=== PATIENT | male | born 1975 | race Caucasian/White ===

== ENCOUNTER 2019-01-28 13:46 | Emergency (ER) | payer SELFPAY ==
[2019-01-28] MEDS ORDERED: TETANUS,DIPH,PERTUSS(ACELL) VACCINE 0.5 ML SYRINGE IM ONE ×2 (14:00→16:23)
--- NOTE | 2019-01-28 14:00 | Event Note ---
ED Screening Note Date of service: 01/28/19 Time: 13:59 ED Screening Note: 43 y o male presents with finger lac today while using a saw tet: not up to date This initial assessment/diagnostic orders/clinical plan/treatment(s) is/are subject to change based on patients health status, clinical progression and re- assessment by fellow clinical providers in the ED. Further treatment and workup at subsequent clinical providers discretion. Patient/guardian urged not to elope from the ED as their condition may be serious if not clinically assessed and managed. Initial orders include: tet acc eval lac repair
--- NOTE | 2019-01-28 16:26 | Emergency Department Report ---
ED Laceration HPI - HPI Chief Complaint: Wound/Laceration Stated Complaint: FINGER LAC Time Seen by Provider: 01/28/19 16:04 Occurred When: Today Location: Upper Extremity (3rd distal finger) Severity: moderate Tetanus Status: Not up to Date Laceration Symptoms: Yes Pain, No Foreign Body Sensation, No Numbness, No Weakness Other History: This is a 43-year-old male who presents to the emergency room with a laceration to left third distal finger. Patient states he accidentally cut his left third finger while operating a circular saw 2-3 hours prior to arrival at work. He applied a dressing and pressure and came directly to the emergency room. Reports tetanus vaccine is not up-to-date. States he is able to bend finger but it is very painful. Reports pain and 7 out of 10 on pain scale and worse with movement or palpation. ED Review of Systems ROS: Stated complaint: FINGER LAC Other details as noted in HPI Constitutional: denies: chills, fever Respiratory: denies: cough, shortness of breath, wheezing Cardiovascular: denies: chest pain, palpitations Gastrointestinal: denies: abdominal pain, nausea, diarrhea Skin: lesions (laceration to left third distal finger). denies: rash Neurological: denies: headache, weakness, paresthesias Psychiatric: denies: anxiety, depression ED Past Medical Hx - Past Medical History Previous Medical History?: No - Surgical History Past Surgical History?: No - Social History Smoking Status: Never Smoker - Medications Home Medications: Home Medications Medication Instructions Recorded Confirmed Last Taken Type Clindamycin [Clindamycin CAP] 300 mg PO Q8H #21 cap 01/28/19 Unknown Rx traMADoL [Ultram 50 MG tab] 50 mg PO Q6HR PRN #12 tablet 01/28/19 Unknown Rx Laceration Physical Exam - Exam General: Vital signs noted. No distress. Alert and acting appropriately. Wound Length (cm): 2 Laceration Location: Upper Extremity (left 3rd distal finger) Full Body Front + Back: 1 - 2 cm laceration into the dermis of third distal phalanx, no underlying or nearby attendance. Involving nail bed, swelling, tenderness, FROM. Neurovascularly exam: Intact, normal capillary refill, normal sensation system touch, normal 2-point discrimination. Laceration Exam: Yes Normal Distal CMS, No Foreign Body, No Exposed Tendon, Vessel, or Nerve, No Tendon Injury ED Course Vital Signs 01/28/19 13:58 Temperature 98.4 F Pulse Rate 77 Respiratory 18 Rate Blood Pressure 124/87 O2 Sat by Pulse 100 Oximetry - Laceration /Wound Repair Left Anterior Distal Finger Wound Location: upper extremity (third distal phalanx) Wound Length (cm): 2 Wound's Depth, Shape: into muscle, irregular, contused tissue Wound Explored: no foreign body removed Irrigated w/ Saline (ccs): 100 Betadine Prep?: Yes Anesthesia: 1% Lidocaine Volume Anesthetic (ccs): 5 Wound Debrided: minimal Wound Repaired With: sutures Suture Size/Type: 5:0 Number of Sutures: 7 Layer Closure?: No Sterile Dressing Applied?: Yes ED Medical Decision Making - Radiology Data Radiology results: report reviewed LEFT MIDDLE FINGER 3 VIEWS INDICATION / CLINICAL INFORMATION: Left middle finger laceration. Possible fracture. COMPARISON: None available. FINDINGS: BONES and JOINT(S): There is a comminuted fracture of the tip of the phalanx of the middle finger. No dislocation is seen. No significant arthritis is identified. SOFT TISSUES: A large laceration is noted along the tip of the middle finger with associated soft tissue gas and swelling. No additional significant abnormality. ADDITIONAL FINDINGS: None. IMPRESSION: Open fracture of the left middle finger as above. - Medical Decision Making This is a 43 y.o. male presents with laceration to left third distal finger. Patient examined by me. X-ray of left fingers obtained. Open fracture of the left middle finger as above. Patient is non-toxic appearing and stable. Given boostrix IM. Closure performed. Risk, benefits, and alternatives discussed with patient. Wound irrigated with normal saline 100 mL and Betadine. A Parekh Digital block performed with 2% lidocaine without epinephrine. Laceration closed with 7, 59 absorbable sutures, review suture note. Patient tolerated procedure well. A sterile dressing was applied. Local wound care discussed. Observe for signs of infection, bleeding, and follow up promptly if these s ymptoms occur. Suture removal in 7-10 days. Discharged home for outpatient treatment with clindamycin. Referral to orthopedic surgeon for follow-up. Discussed ER care plan with patient. Patient agreed with plan. F/U with PCP. Critical care attestation.: If time is entered above; I have spent that time in minutes in the direct care of this critically ill patient, excluding procedure time. ED Disposition Clinical Impression: Laceration of finger of left hand with damage to nail Qualifiers: Encounter type: initial encounter Finger: middle finger Foreign body presence: without foreign body Qualified Code(s): S61.313A - Laceration without foreign body of left middle finger with damage to nail, initial encounter Open finger fracture Qualifiers: Encounter type: initial encounter Finger: middle finger Phalanx: middle Fracture alignment: nondisplaced Laterality: left Qualified Code(s): S62.653B - Nondisplaced fracture of middle phalanx of left middle finger, initial encounter for open fracture Disposition: TO HOME OR SELFCARE Is pt being admited?: No Condition: Stable Instructions: Suture Care (ED), Finger Laceration (ED) Additional Instructions: Take antibiotics as prescribed for the full course. Keep wound dry and clean for 48 hours. Avoid putting to much tension on wound site. Prop arm up on pillows to decrease swelling. Follow up with Primary Care Provider in 2-3 days. Have sutures removed in 7 days by primary care provider or in ER. Return to ER if red, swollen, foul discharge, or fever. Prescriptions: Clindamycin [Clindamycin CAP] 300 mg PO Q8H #21 cap traMADoL [Ultram 50 MG tab] 50 mg PO Q6HR PRN #12 tablet PRN Reason: Pain Referrals: [facility] [Provider Group] - 3-5 Days RASHEL BARRETO MD [Staff Physician] - 3-[address] [facility] [Outside] - 3-5 Days Forms: Work/School Release Form(ED)
--- NOTE | 2019-01-28 17:00 | XRay Report ---
LEFT MIDDLE FINGER 3 VIEWS INDICATION / CLINICAL INFORMATION: Left middle finger laceration. Possible fracture. COMPARISON: None available. FINDINGS: BONES and JOINT(S): There is a comminuted fracture of the tip of the phalanx of the middle finger. No dislocation is seen. No significant arthritis is identified. SOFT TISSUES: A large laceration is noted along the tip of the middle finger with associated soft tis manpreet gas and swelling. No additional significant abnormality. ADDITIONAL FINDINGS: None. IMPRESSION: Open fracture of the left middle finger as above. Signer Name: Jackson Hagan MD Signed: 01/28/2019 4:55 PM Workstation Name: [id number]
[2019-01-28] MEDS ORDERED: SODIUM CHLORIDE 0.9% IRR 500 ML BOTTLE IR ONE (18:37)
[2019-01-28] MEDS ORDERED: LIDOCAINE (2%) 20 MG/1 ML VIAL 20 ML MDV INFILTRATI ONE (18:40)
[2019-01-28 20:55] VITALS: BP 120/70
== END 2019-01-28 20:35 | disposition home or self-care (01) ==
LOC: ED 13:46
DX: S62.603B Fracture of unspecified phalanx of left middle finger, initial encounter for open fracture (principal); W45.8XXA Other foreign body or object entering through skin, initial encounter; Y93.89 Activity, other specified; Y92.89 Other specified places as the place of occurrence of the external cause; Y99.8 Other external cause status
CPT/HCPCS: 90471; 90715